=== PATIENT | male | born 1970 | race Caucasian/White ===

== ENCOUNTER → 2018-07-06 | Outpatient (CLI) | payer BC ==
[~2018-07-06] VITALS: Ht 175.3 cm; Wt 108.9 kg
[~2018-07-06] MED LIST: DIGESTIVE PO; EXCEDRIN CAPLE1 EACH PO; MEDROLDOSEPACK PO; MOBIC15 MG PO; NORCO 5-325 TA1 EACH PO
[2018-07-06 09:44] VITALS: BP 146/78
== END ==
LOC: PAIN 06-27 14:21
DX: M54.5 Low back pain (principal); M79.604 Pain in right leg; M79.605 Pain in left leg; G89.29 Other chronic pain

== ENCOUNTER → 2018-07-13 | Outpatient (CLI) | payer BC ==
[~2018-07-13] VITALS: Ht 175.3 cm; Wt 112.7 kg
[2018-07-13 09:59] VITALS: BP 131/62
== END | disposition home or self-care (01) ==
LOC: PAIN 09:31
DX: M54.16 Radiculopathy, lumbar region (principal); G47.30 Sleep apnea, unspecified; Z79.899 Other long term (current) drug therapy

== ENCOUNTER → 2018-12-19 | Outpatient (CLI) | payer BC ==
[~2018-12-19] VITALS: Ht 175.3 cm; Wt 109.8 kg
--- NOTE | ~2018-12-19 | HPC ---
[facility] [place] [address] PAIN MANAGEMENT CONSULTATION Name: KALYANI GARRIDO [id number] Admission: 12/19/18 ������������������ Attend Phys: Lon Rowley MD Discharge: ������������������ Date of : 72 Report #: [id number] THIS REPORT FOR: //name// CC: ALBERTINA physician/PCP Lon Rowley DATE OF SERVICE: 12/19/2018 FOLLOWUP COMPLAINT: Here for an epidural steroid injection. HISTORY: The patient is a 48-year-old gentleman who has been seen in the pain clinic. He is suffering from lumbar radiculopathy. He has returned today for treatment. He has undergone an epidural steroid injection in the low back area. He has found that this has been beneficial. He did note an increase in pain and discomfort and has been having pain primarily on the right side. This in the lower portion of his back with radiation down into his right leg and foot. Notes that the pain is really very intense. It involves both legs. Goes down the outer aspect of his leg in the outer portion of his foot. He has also notes that his toes on the outer foot are tingly and numb. He describes this discomfort as constant, shooting, sharp, stabbing and rates it as 6/10. Bending, sitting, standing, walking, uphill all exacerbate his discomfort. He has found some improvement with use of heat, medications and with constant repositioning himself. ALLERGIES: No known drug allergies. CURRENT MEDICATIONS: Hydrocodone 5/325 one p.o. q. 8 hours p.r.n., bismuth for gastrointestinal upset and Excedrin caplets b.i.d. PAIN CLINIC ASSESSMENT/PQRS: 1. History of osteoarthritis. The patient is not being treated for osteoarthritis or rheumatoid arthritis. 2. Height 5 feet 9 inches, weight is 224 pounds, BMI is 35.7. 3. Vital signs: Blood pressure 135/83, pulse 87, respiratory rate 16, room air saturation is 98%. 4. Pain intensity 03/04. 5. Fall risk. The patient has not fallen in the last 3 months. 6. Blood thinner. The patient is not on a blood thinner medication. 7. Hypertension. The patient is not being treated for hypertension. 8. Opiate greater than 6 weeks. The patient is receiving opioid medications on occasion for control of his pain. 9. Risks assessment tool, opioids low. 10. Functional assessment tool 38/70. 11. Recreational drug use. The patient denies use of recreational drugs. 12. Tobacco: The patient denies use of tobacco. 13. Alcohol: The patient occasionally drinks alcoholic beverage. [address] [address] PAIN MANAGEMENT CONSULTATION Name: HEMAKALYANI Room #: REG [facility] [place]#: [id number] Admission: 12/19/18 ������������������ Attend Phys: Lon Rowley MD Discharge: ������������������ Date of : 72 Report #: [id number] PHYSICAL EXAMINATION: GENERAL: The patient is a well-developed, well-nourished white male. Appears his stated age. He is alert and oriented x 3. His affect is appropriate. Speech is fluent. HEENT: Normocephalic, atraumatic. Extraocular eye muscles intact. Sclerae nonicteric. Mucous membranes are moist. NECK: Without adenopathy or JVD. HEART: Regular rate. S1, S2. EXTREMITIES: Upper extremity muscle strength is judged to be 5/5 for the major muscle groups. The patient has a well-healed scar in the mid portion of his back. He does not have significant scoliosis, kyphosis or lordosis. The patient has pain and discomfort in the L5/L4 area on the right side. IMPRESSION: Lumbar radiculopathy involving the right leg with pain radiating down into the right leg with numbness and tingling in the L4-L5 dermatomal distribution. RECOMMENDATIONS: We discussed treatment options with the patient and his . Risks and benefits of an epidural steroid injection were again discussed. They include but are not limited to infection, worsening pain, no improvement in pain, nerve damage, bleeding, spinal headache. The patient elects to proceed. PROCEDURE NOTE: The patient was taken to the procedure area. He was assisted in getting on the examination table. His back was sterilely prepped with a Betadine solution. A 0.25% bupivacaine was infiltrated in the right paraspinal area at L4-L5. A 22-gauge spinal needle, Chiba was then used to advance into the right transforaminal area. A total of 80 mg Depo-Medrol, 40 mg triamcinolone was injected. The patient tolerated the procedure well. Total of 30 seconds was used. The patient's pain decreased to 6 at the time of discharge. He will follow up in the future as needed. We would like to thank you for letting us participate in his care. We hope he continues to improve. ��������������������������������������������� ���������������������������������������� By: ��������������������������������������������� [id number] Lon Rowley MD /anais
[2018-12-19 13:40] VITALS: BP 135/83
--- NOTE | 2018-12-19 13:42 | NUR ---
Pain Clinic Assessment: 1. History of Osteoarthritis: NO History of Rheumatoid Arthritis: NO 2. Height: 5 ft. 9 in. 175.3 cm. Weight: 242.0 lb. oz. 109.771 kg. Patient's BMI: 35.7 3. Vital Signs: BP: 135/83 Pulse: 87 Resp: 16 Temp: 02 Sat: 98 ECG Mon: 4. Pain Intensity: 6 5. Fall Risk: Dizziness: N Needs help standing or walking: N Fallen in the last 3 months: N Fall risk comments: 6. Patient on Blood Thinner: None 7. History of Hypertension: N 8. Opioid Therapy greater than 6 weeks: Y Opiate Contract Signed: 9. Risk Assessment Tool Provided: Opioid Risk Tool 10. Functional Assessment Tool: 11. Recreational Drug Use: Never Drug Type: Tobacco Use: Never Smoker Tobacco Type: Amount or Packs/day: How Many Years: Alcohol Use: Yes Frequency: Weekly Quant: 4
== END | disposition home or self-care (01) ==
LOC: PAIN 07:12
DX: M54.16 Radiculopathy, lumbar region (principal); M19.90 Unspecified osteoarthritis, unspecified site; Z68.35 Body mass index [BMI] 35.0-35.9, adult; I10 Essential (primary) hypertension; Z79.899 Other long term (current) drug therapy

== ENCOUNTER → 2019-02-20 | Outpatient (CLI) | payer BC ==
[~2019-02-20] VITALS: Ht 175.3 cm; Wt 111.9 kg
[~2019-02-20] MED LIST changes: +GABAPENTIN 100100 MG PO; +PERCOCET 5-3251 EACH PO
[2019-02-20 11:24] VITALS: BP 143/91
--- NOTE | 2019-02-20 11:37 | NUR ---
Pain Clinic Assessment: 1. History of Osteoarthritis: NO History of Rheumatoid Arthritis: NO 2. Height: 5 ft. 9 in. 175.3 cm. Weight: 246.6 lb. oz. 111.857 kg. Patient's BMI: 36.4 3. Vital Signs: BP: 143/91 Pulse: 74 Resp: 18 Temp: 02 Sat: 97 ECG Mon: 4. Pain Intensity: 8 5. Fall Risk: Dizziness: N Needs help standing or walking: N Fallen in the last 3 months: N Fall risk comments: 6. Patient on Blood Thinner: None 7. History of Hypertension: N 8. Opioid Therapy greater than 6 weeks: Y Opiate Contract Signed: 9. Risk Assessment Tool Provided: Opioid Risk Tool 10. Functional Assessment Tool: 11. Recreational Drug Use: Never Drug Type: Tobacco Use: Never Smoker Tobacco Type: Amount or Packs/day: How Many Years: Alcohol Use: Yes Frequency: Quant:
--- NOTE | 2019-02-22 16:10 | HPC ---
[facility] [place] [address] PAIN MANAGEMENT CONSULTATION Name: KALYANI GARRIDO Room #: REG [facility] [place]#: [id number] Admission: 02/20/19 ������������������ Attend Phys: Lon Rowley MD Discharge: ������������������ Date of : 72 Report #: [id number] THIS REPORT FOR: //name// CC: Francesco Rowley DATE OF SERVICE: 02/20/2019 CHIEF COMPLAINT: "I was lift something and hurt my back." FOLLOWUP HISTORY: The patient is a 48-year-old gentleman who has been seen in the Pain Clinic because of lumbar radiculopathy. He has undergone surgery in the past because of disk problems. He has been seen in the Pain Clinic and undergone epidural steroid injection. The first injection was to the midline approach. The patient has had a significant amount of scar tissue and the second approach was through the transforaminal approach. The patient feels that the pain was most beneficial to the first injection, but the second injection was helpful as well. He recently lifted an item improperly. He notes an increase in pain. He is experiencing pain that is radiating down into his leg, into the calf and to the dorsum of his foot with some numbness. Notes that the pain has some sharp components to it. Notes that the pain has oftentimes significantly uncomfortable when he takes his first step. Decreases somewhat after that. ALLERGIES: No known drug allergies. CURRENT MEDICATIONS: 1. Gabapentin 100 mg 3 times daily, meloxicam 15 mg, hydrocodone 5/325. The patient has noted some upset stomach with these medication. 2. Bismuth digestive relief, Excedrin caplets. PAIN CLINIC ASSESSMENT/PQRS: 1. The patient has some arthritic changes in his low back. He is not being treated for rheumatoid arthritis. 2. Height 5 feet 9 inches, weight 246 pounds, BMI is 36.4. 3. Vital Signs: Blood pressure 143/91, pulse 74, respiratory rate 18, room air saturation 97%. There is no temperature. 4. Pain intensity, 05/04. 5. Fall history: The patient has not fallen in the last 3 months. 6. Blood thinner. The patient is not on a blood thinning medication. 7. Hypertension. The patient is not being treated for hypertension. 8. Opioids greater than 6 weeks. The patient has received opioid medications from his primary. 9. Risk assessment tool, low for opioid risk. 10. Functional assessment tool, . 11. Recreational drug use. The patient denies [place] [address] PAIN MANAGEMENT CONSULTATION Name: KALYANI GARRIDO Room #: REG [facility]#: [id number] Admission: 02/20/19 ������������������ Attend Phys: Lon Rowley MD Discharge: ������������������ Date of : 72 Report #: [id number] 12. Tobacco: The patient has never smoked. 13. Alcohol. The patient drinks alcoholic beverages on occasion. PHYSICAL EXAMINATION: GENERAL: The patient is a well-developed, well-nourished white male. Appears his stated age. He is alert and oriented x 3. His affect is appropriate. Speech is fluent. HEENT: Normocephalic, atraumatic. Extraocular eye muscles intact. Sclerae nonicteric. Mucous membranes are moist. NECK: Without adenopathy or JVD. Upper extremity muscle strength is judged to be 5/5 for the major muscle groups in the upper extremity. HEART: Regular rate. S1, S2. LUNGS: Clear to auscultation. EXTREMITIES: Lower extremity muscle strength is judged to be 5-/5 for the right lower extremity and 5/5 for the left lower extremity. This is on the right side. IMPRESSION: 1. Lumbar radiculopathy in the right leg, which has been exacerbated after lifting. 2. Numbness and tingling in the L4-L5 dermatomal distribution with sensory changes on the dorsum of his foot. RECOMMENDATIONS: We discussed treatment options with the patient. At this juncture, he feels that he would like to proceed with an epidural steroid injection. He has gleaned benefits from these in the past. We explained to the patient the difficulty of his pain. The patient is having pain that is radiating down in the L4-L5 dermatomal distribution. We explained to the patient that he does have increasing amounts of calcium building between the L4-L5 areas. At the last injection, we tried on a number of occasions without success to gain access to the epidural space. We will proceed with an epidural injection trying to go midline initially. Should it be problematic, we will then convert to a transforaminal approach. Risks and benefits of the procedure was discussed with the patient. They include but are not limited to infection, worsening pain, no improvement in pain, nerve damage, spinal cord infections and the patient elects to proceed. PROCEDURE NOTE: The patient was taken to the procedure area. He was then assisted in getting on examination table. His back was sterilely prepped with a Betadine solution. Fluoroscopy using anterior, posterior as well as lateral viewing were implemented. At the L4-L5 interspace, 0.25% bupivacaine was infiltrated. A 17-gauge Tuohy with loss of resistance technique was used to gain access was used to attempt access at the epidural space. After attempts at this level failed, a transforaminal approach was undertaken. The patient's back was sterilely prepped. At the left L4-L5 area, a skin wheal was placed. A 20-gauge Chiba needle was then advanced into the area of the L4-L5 nerve root. [address] [address] PAIN MANAGEMENT CONSULTATION Name: HEMAKALYANI M Room #: REG [facility].#: [id number] Admission: 02/20/19 ������������������ Attend Phys: Lon Rowley MD Discharge: ������������������ Date of : 72 Report #: [id number] Aspiration was negative. A total of 80 mg Depo-Medrol, 40 mg triamcinolone was injected. The patient remained in the Pain Clinic for an appropriate amount of time. He would like to pursue physical therapy. A script for physical therapy has been provided. He will call us if he has any concerns. We would like to thank you for letting us participate in his care. We hope he continues to improve. ��������������������������������������������� <ELECTRONICALLY SIGNED> ���������������������������������������� By: Lon Rowley MD ��������������������������������������������� 02/22/19 1610 [id number] Lon Rowley MD /nt
== END | disposition home or self-care (01) ==
LOC: PAIN 06:48
DX: M54.16 Radiculopathy, lumbar region (principal); G89.29 Other chronic pain; Z98.890 Other specified postprocedural states; Z79.899 Other long term (current) drug therapy